=== PATIENT | male | born 1990 | race Caucasian/White ===

== ENCOUNTER 2018-03-24 19:43 | Emergency (ER) | payer MEDICAID ==
[~2018-03-24] VITALS: Ht 165.1 cm; Wt 56.9 kg
[2018-03-24 23:03] VITALS: BP 110/80
== END 2018-03-24 23:04 | disposition home or self-care (01) ==
LOC: ER 19:43
DX: B35.1 Tinea unguium (principal); L60.8 Other nail disorders
CPT/HCPCS: 99282

== ENCOUNTER 2018-04-27 08:44 | Emergency (ER) | payer MEDICAID ==
[~2018-04-27] VITALS: Ht 162.6 cm; Wt 56.1 kg
[2018-04-27] MEDS ORDERED: IBUPROFEN 800MG TABLET PO ONE (10:30)
[2018-04-27 12:15] VITALS: BP 120/82
== END 2018-04-27 12:20 | disposition home or self-care (01) ==
LOC: ER 08:56
DX: M79.672 Pain in left foot (principal); Z87.891 Personal history of nicotine dependence; Z87.828 Personal history of other (healed) physical injury and trauma
CPT/HCPCS: 73630; 99283

== ENCOUNTER 2019-09-23 18:59 | Emergency (ER) | payer MEDICAID ==
[~2019-09-23] VITALS: Ht 165.1 cm; Wt 55.0 kg
[2019-09-23] MEDS ORDERED: IBUPROFEN 600MG TABLET PO ONE (19:30)
[2019-09-23 19:36] VITALS: BP 128/79
== END 2019-09-23 19:38 | disposition home or self-care (01) ==
LOC: ER 18:59
DX: S63.611A Unspecified sprain of left index finger, initial encounter (principal); X58.XXXA Exposure to other specified factors, initial encounter; Y93.89 Activity, other specified; Y92.89 Other specified places as the place of occurrence of the external cause; Y99.8 Other external cause status
CPT/HCPCS: 99282